=== PATIENT | male | born 1970 | race Caucasian/White ===

== ENCOUNTER 2019-05-28 15:10 | Emergency (ER) | payer BC ==
[~2019-05-28] VITALS: Ht 175.3 cm; Wt 102.1 kg
[2019-05-28] MEDS ORDERED: Augmentin 875-1 EACH PO (15:44)
== END 2019-05-28 16:22 | disposition home or self-care (01) ==
LOC: ER 15:10
DX: S81.832A Puncture wound without foreign body, left lower leg, initial encounter (principal); Z23 Encounter for immunization; W22.8XXA Striking against or struck by other objects, initial encounter
CPT/HCPCS: 73590; 90471; 90714; 99282-25